=== PATIENT | male | born 1980 | race Caucasian/White ===

== ENCOUNTER 2016-12-31 15:39 | Observation (INO) | payer OTHER ==
[~2016-12-31] VITALS: Ht 177.8 cm; Wt 104.0 kg
[~2016-12-31 15:39] MED LIST: Lopressor PO; SIMVASTATIN20 MG PO; SYNTHROID100 MCG PO
[2016-12-31] MEDS ORDERED: [UNRECOGNIZED DRUG - OTHER] PO (16:03)
[2016-12-31 16:13] LABS: HEMATOCRIT 47.2 % (38.0-50.0); MCH 31.3 PG (29.0-34.0); MCHC 35.6 G/DL (30.0-36.0); MCV 88.1 FL (86-99); MEAN PLAT.VOLUME 9.7 uM^3 (9.0-12.4); PLATELET COUNT 303 K/uL (156-360); RBC DIS.WIDTH-CV 11.9 % (11.8-14.6); RBC DIS.WIDTH-SD 38.3 % (39-53); RED BLOOD COUNT 5.36 M/uL (4.00-5.50); WHITE BLOOD COUNT 7.4 K/uL (4.1-10.2)
[2016-12-31 16:27] LABS: D-DIMER ELISA 0.18 mg/L FEU (< 0.57)
[2016-12-31 16:28] LABS: CHLORIDE 106 mEq/L (99-109); POTASSIUM 4.2 mEq/L (3.7-5.4); SODIUM 139 mEq/L (136-147)
[2016-12-31 16:30] LABS: GLUCOSE 86 mg/dL (70-99)
[2016-12-31 16:31] LABS: ANION GAP 9 MEQ/L (2-14)
[2016-12-31 16:34] LABS: GFR ESTIMATE (CALCULATED) > 59 mL/min/
[2016-12-31 16:35] LABS: UREA NITROGEN (BUN) 25 mg/dL (9-23)
[2016-12-31 16:38] LABS: TROP-I INTERPRETATION NEGATIVE; TROPONIN-I < 0.01 ng/mL (0.0-0.30)
[2016-12-31] MEDS ORDERED: TESTOSTERO200 MG/12 IM (16:57)
[2016-12-31 19:44] VITALS: BP 167/91
[2016-12-31 23:47] VITALS: BP 131/75
[2016-12-31 23:48] LABS: TROP-I INTERPRETATION NEGATIVE; TROPONIN-I < 0.01 ng/mL (0.0-0.30)
[2017-01-01 05:00] VITALS: BP 113/62
[2017-01-01 06:06] LABS: TROP-I INTERPRETATION NEGATIVE; TROPONIN-I < 0.01 ng/mL (0.0-0.30)
[2017-01-01 06:17] LABS: ANION GAP 8 MEQ/L (2-14); CHLORIDE 104 MEQ/L (99-109); GFR ESTIMATE (CALCULATED) > 59 mL/min/; GLUCOSE 85 mg/dL (70-99); SAMPLE HEMOLYSIS CHECK 0; SAMPLE ICTERIC CHECK 0; SAMPLE LIPEMIA CHECK 0; SODIUM 139 MEQ/L (136-147); UREA NITROGEN (BUN) 23 mg/dL (9-23)
[2017-01-01] MEDS ORDERED: LISINOPRIL5 MG PO (08:10)
[2017-01-01] MEDS ORDERED: ASPIR-LOW81 MG PO (08:10)
[2017-01-01 08:18] VITALS: BP 135/77
== END 2017-01-01 10:02 | disposition home or self-care (01) ==
LOC: EME 15:39 → EDOF 18:18 → 5WEST 18:18
PROVIDERS: Emergency Medicine; Internal Medicine
DX: R07.89 Other chest pain (principal); E03.9 Hypothyroidism, unspecified; E78.5 Hyperlipidemia, unspecified; Z82.49 Family history of ischemic heart disease and other diseases of the circulatory system; E66.9 Obesity, unspecified; Z68.32 Body mass index [BMI] 32.0-32.9, adult
CPT/HCPCS: 71020; 80048; 83880; 84484; 85027; 85379; 93005; 99281; 99285; G0378

== ENCOUNTER 2017-10-27 22:46 | Emergency (ER) | payer OTHER ==
[~2017-10-27] VITALS: Ht 182.9 cm; Wt 108.4 kg
[~2017-10-27 22:46] MED LIST changes: +ASPIR-LOW81 MG PO; +LISINOPRIL5 MG PO; +TESTOSTERO200 MG/12 IM; +[UNRECOGNIZED DRUG - OTHER] PO
[2017-10-27 23:12] LABS: HEMATOCRIT 44.2 % (38.0-50.0); HEMOGLOBIN 15.6 G/DL (12.5-16.6); MCH 31.8 PG (29.0-34.0); MCHC 35.3 G/DL (30.0-36.0); PLATELET COUNT 304 K/uL (156-360); RBC DIS.WIDTH-CV 12.2 % (11.8-14.6); RED BLOOD COUNT 4.91 M/uL (4.00-5.50); WHITE BLOOD COUNT 8.6 K/uL (4.1-10.2)
[2017-10-27 23:26] LABS: CHLORIDE 105 mEq/L (99-109)
[2017-10-27 23:27] LABS: SODIUM 142 mEq/L (136-147)
[2017-10-27 23:28] LABS: GLUCOSE 105 mg/dL (70-99)
[2017-10-27 23:32] LABS: CREATININE 1.4 mg/dL (0.6-1.3); GFR ESTIMATE (CALCULATED) > 59 mL/min/ (58.99-99999)
[2017-10-27 23:33] LABS: UREA NITROGEN (BUN) 19 mg/dL (9-23)
[2017-10-27 23:36] LABS: TROP-I INTERPRETATION NEGATIVE; TROPONIN-I 0.01 ng/mL (0.0-0.30)
[2017-10-27 23:50] LABS: D-DIMER ELISA < 150.00 ng/mLDDU (<230)
[2017-10-27 23:57] LABS: CREATINE KINASE 349 IU/L (1-294)
[2017-10-28 01:44] LABS: TROP-I INTERPRETATION NEGATIVE; TROPONIN-I < 0.01 ng/mL (0.0-0.30)
[2017-10-28 03:22] VITALS: BP 166/93
== END 2017-10-28 03:34 | disposition home or self-care (01) ==
LOC: EME 22:46
PROVIDERS: Emergency Medicine
DX: R42 Dizziness and giddiness (principal); I10 Essential (primary) hypertension; R07.89 Other chest pain; E78.5 Hyperlipidemia, unspecified; G43.909 Migraine, unspecified, not intractable, without status migrainosus; E03.9 Hypothyroidism, unspecified; Z88.6 Allergy status to analgesic agent; Z88.8 Allergy status to other drugs, medicaments and biological substances
CPT/HCPCS: 71046; 80048; 82550; 84484; 85027; 85379; 93005; 99281; 99285; J7030